=== PATIENT | female | born 1960 | race Caucasian/White ===

== ENCOUNTER 2019-10-14 17:00 | Outpatient (CLI) | payer OTHER | END 2019-10-14 23:59 | disposition home or self-care (01) | LOC: D.MAMMO 17:00 | PROVIDERS: ATTEND Family Medicine | DX: N63.20 Unspecified lump in the left breast, unspecified quadrant (principal) ==

== ENCOUNTER 2020-05-08 15:10 | Emergency (ER) | payer OTHER ==
[~2020-05-08] VITALS: Ht 165.1 cm; Wt 122.7 kg
[~2020-05-08 15:10] MED LIST: BAYER ASPIRIN325 MG PO; BIOTIN; CENTRUM SILVER1 EAC3 PO; FISH OIL 1,0001 CA1; LAMICTAL150 M1 PO; LISINOPRIL-HCT1 EAC8 PO; PRAVACHOL20 MG; PROPRANOLOL HCL20 MG PO; PROTONIX40 MG PO; PROZAC20 MG; TRAZODONE HCL100 MG PO; XANAX0.5 MG PO
[2020-05-08 15:16] VITALS: Ht 165.1 cm; Wt 122.7 kg
[2020-05-08 15:42] LABS: BASOPHILS 0.1 % (0-2); EOSINOPHILS 0.4 % (0-7); HEMOGLOBIN 12.2 g/dL (12-16); IMMATURE GRANULOCYTES 0.3 % (0-5); LYMPHOCYTE ABS# 1.44 10x3/uL (1.18-3.74); LYMPHOCYTES 9.7 % (15-50); MCH 30.8 pg (26.0-34.0); MCHC 32.1 g/dL (31.0-37.0); MEAN PLATELET VOLUME 10.2 fL (7.4-10.4); MONOCYTES 12.9 % (2-11); NEUTROPHIL ABS# 11.43 10x3/uL (1.56-6.13); NEUTROPHILS 76.6 % (40-80); RBC 3.96 10x6/uL (4.00-5.40); RDW 13.3 % (11.5-14.5); WBC 14.9 10x3/uL (4.8-10.8)
[2020-05-08 15:55] LABS: CALC OSMOLALITY 260 mosm/kg (275-300); CALCIUM 10.2 mg/dL (8.5-10.1); CARBON DIOXIDE 26.2 mmol/L (21.0-32.0); CHLORIDE - SERUM 97 mmol/L (98-107); CREATININE - SERUM 1.2 mg/dL (0.6-1.3); GLUCOSE 151 mg/dL (74-106); PLATELET COUNT 149 10x3/uL (130-400); POTASSIUM - SERUM 3.4 mmol/L (3.5-5.1); SODIUM 129 mmol/L (136-145); UREA NITROGEN 10 mg/dL (7-18); eGFR NON AFRICAN AMERICAN 49 mL/min (90-120)
[2020-05-08 16:00] LABS: APTT 21.3 SECONDS (22.8-39.4); INR 1.13 (0.85-1.17); PROTIME 13.4 SECONDS (11.6-15.0)
[2020-05-08 16:10] LABS: ALBUMIN 3.1 g/dL (3.4-5.0); ALKALINE PHOSPHATASE 63 U/L (30-120); ALT (SGPT) 14 U/L (10-68); BILIRUBIN - TOTAL 0.69 mg/dL (0.2-1.3); CREATINE KINASE 15 UL (21-215)
[2020-05-08 16:13] LABS: TROPONIN-I < 0.017 ng/mL (0.000-0.060)
[2020-05-08 17:25] LABS: BILIRUBIN NEGATIVE (NEGATIVE); KETONE NEGATIVE (NEGATIVE); NITRITE NEGATIVE (NEGATIVE); UROBILINOGEN NORMAL mg/dL (< 2)
[2020-05-08 17:30] VITALS: BP 128/68
[2020-05-08 17:33] LABS: SQUAMOUS EPITHELIAL 0-5 HPF (0-4); WHITE CELLS - URINE 25-50 HPF (0-4)
[2020-05-08 17:34] LABS: AMORPHOUS SEDIMENT MODERATE LPF (NONE SEEN); BACTERIA FEW HPF (NONE SEEN)
[2020-05-08] MEDS ORDERED: CEPHALEXIN500 M1 PO (17:51)
[2020-05-08] MEDS ORDERED: MACROBID100 MG PO (17:51)
[2020-05-08] MEDS ORDERED: PHENAZOPYRIDIN200 MG PO (17:51)
== END 2020-05-08 18:30 | disposition home or self-care (01) ==
LOC: D.ER 15:10
PROVIDERS: Family Medicine
DX: N39.0 Urinary tract infection, site not specified (principal); R50.9 Fever, unspecified; R32 Unspecified urinary incontinence; I10 Essential (primary) hypertension; K21.9 Gastro-esophageal reflux disease without esophagitis